=== PATIENT | female | born 2000 | race Two or more races ===

== ENCOUNTER 2020-10-29 15:06 | Emergency (ER) | payer MEDICAID ==
[~2020-10-29] VITALS: Ht 157.5 cm; Wt 86.2 kg
[2020-10-29 15:21] VITALS: BP 115/80
[2020-10-29] MEDS ORDERED: DEXA4TAB PO (15:49)
[2020-10-29] MEDS ORDERED: AZIT250T PO (15:49)
[2020-10-29] MEDS ORDERED: IVER3TAB2 PO (15:49)
[2020-10-29] MEDS ORDERED: DEXAMETHASONE 4 MG TABLET ONE (15:58)
[2020-10-29] MEDS ORDERED: DEXAMETHASONE 1 MG TABLET ONE (15:58)
[2020-10-29] MEDS ORDERED: ACETAMINOPHEN ES 500 MG TABLET ONE (15:58)
[2020-10-29] MEDS ORDERED: DEXAMETHASONE SOLN 5 MG/5 ML UDC PO ONE (16:00)
[2020-10-29] MEDS ORDERED: ACETAMINOPHEN ES 500 MG TABLET PO ONE (16:00)
--- NOTE | 2020-10-29 16:02 | NUR ---
Patient discharged to home in stable condition. Written and verbal after care instructions given. Patient verbalizes understanding of instruction. Pt ambulatory with a steady gait
== END 2020-10-29 16:04 | disposition home or self-care (01) ==
LOC: ER 15:06
DX: U07.1 COVID-19 (principal)
CPT/HCPCS: 99283; J8540 ×2

== ENCOUNTER 2021-07-18 20:54 | Emergency (ER) | payer MEDICAID ==
[~2021-07-18] VITALS: Ht 154.9 cm; Wt 68.0 kg
[~2021-07-18 20:54] MED LIST: AZIT250T PO; DEXA4TAB PO; IVER3TAB2 PO
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
[2021-07-18] MEDS ORDERED: ACETAMINOPHEN 325 MG TABLET ONE (22:13)
[2021-07-18] MEDS: ACETAMINOPHEN 325 MG TABLET PO ONE (22:21)
--- NOTE | 2021-07-18 22:23 | NUR ---
Patient discharged to home in stable condition. Written and verbal after care instructions given. Patient verbalizes understanding of instruction. Pt ambulatory with a steady gait
[2021-07-18 22:37] VITALS: BP 125/87
== END 2021-07-18 22:25 | disposition home or self-care (01) ==
LOC: ER 21:00
DX: O9A.211 Injury, poisoning and certain other consequences of external causes complicating pregnancy, first trimester (principal); S16.1XXA Strain of muscle, fascia and tendon at neck level, initial encounter; S70.02XA Contusion of left hip, initial encounter; Z3A.00 Weeks of gestation of pregnancy not specified; Z79.899 Other long term (current) drug therapy; V43.52XA Car driver injured in collision with other type car in traffic accident, initial encounter; Y93.89 Activity, other specified; Y92.89 Other specified places as the place of occurrence of the external cause; Y99.8 Other external cause status